=== PATIENT | female | born 1940 | race Caucasian/White ===

== ENCOUNTER → 2017-01-11 | Outpatient (CLI) | payer MEDICARE, BC ==
--- NOTE | 2017-01-11 14:58 | RADRPT ---
PROCEDURE: XR Right hip and pelvis. CLINICAL INDICATION: Right hip pain. Pelvic pain. TECHNIQUE: Two views. Frontal pelvis and lateral right hip. COMPARISON: No prior studies are available for comparison. FINDINGS: There is no fracture or dislocation. The soft tissues are normal. There are degenerative changes of the right hip with joint space narrowing and osteophytes. The left hip is grossly normal. There is no lytic or blastic lesion. The upper pelvis is not completely included on the image. IMPRESSION: 1. Moderate degenerative changes of the right hip. 2. Grossly normal appearance of the left hip and pelvis. RPTAT: QQ .Zander Venegas MD, MD Date Time Electronically viewed and signed by .Zander Venegas MD, MD on 01/11/2017 14:57 .R/
--- NOTE | 2017-01-11 18:02 | HKNOTE ---
DATE OF SERVICE: 01/11/2017 MAIN COMPLAINT: Pain in her right hip. HISTORY OF MAIN COMPLAINT: The patient is a 76-year-old female who complains of pain in her right h ip joint. She has had the pain now for about a year. There has been no history of injury to the hi p. The pain is localized to the right groin and radiates down the anterior thigh to just above the knee. PRESENT COMPLAINTS: The pain is localized as above. Pain varies from mild to moderate. It has nev er been severe. Pain seems to come and go at will. Sleeping in certain positions aggravates the pa in. 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 She is not taking any medications for the pain, "I don't believe in medications." She does not have any back pain. No numbness or tingling in her legs. On a level surface, she can walk "as far as n eeded." She does not use a walking aid. She does not limp. She does not have a shoe lift. She ca n clip her toenails and tie her shoe laces. SPORTING ACTIVITIES: None. PAST ORTHOPEDIC HISTORY PREVIOUS ORTHOPEDIC OPERATIONS: None. PRIOR CORTISONE INTAKE: None. ALCOHOL INTAKE: 1 glass of wine on social occasions. OTHER JOINT PROBLEMS: None. BLOOD TESTS FOR ARTHRITIS: None. PRIOR INJURIES TO HIPS OR KNEES: None. WORK STATUS: Mainly sitting at a desk. PAST MEDICAL HISTORY: Hypertension and asthma. PAST SURGICAL HISTORY: Ovarian cyst removed. ALLERGIES: ASPIRIN. MEDICATIONS: 1. Benicar 40 mg a day for hypertension. 2. Climara once a month on a patch. FAMILY HISTORY: Father at 80 of unstated causes. Mother at 88 of unstated causes. SYSTEMS REVIEW: Varicose veins, hypertension, otherwise entirely negative. HABITS: The patient does not smoke. She drinks an occasional glass of wine. POT WASHER: Dr. Yunior Vee [address], [place] [address]. PHYSICAL EXAMINATION: GENERAL: The patient is an extremely fit-looking and youthful 76-year-old female. She looks at [facility] years younger than her stated age. Her gait is normal. VITAL SIGNS: Height 5 feet 2 inches, weight 118 pounds, blood pressure 115/55, temperature 97.9. Examination of the right hip: A full range of motion with pain in the groin on forced internal rota tion and forced external rotation. Examination of the left hip: A full range of motion without pain. No tenderness anywhere around either hip. RIGHT KNEE: The right knee shows normal alignment. Active and passive extension is 0 degrees. Activ e and passive flexion is 135 degrees. The medial and lateral collateral ligaments and cruciate ligam ents are intact. Rhett test is negative. There is no effusion, tenderness, scarring, crepitus, or cysts. The patella tracks normally. There is no tenderness on the articular surface of the patella o r in the patellar groove. The Q angle is normal. LEFT KNEE: The left knee shows normal alignment. Active and passive extension is 0 degrees. Active and passive flexion is 135 degrees. The medial and lateral collateral ligaments and cruciate ligamen ts are intact. Rhett test is negative. There is no effusion, tenderness, scarring, crepitus, or cy sts. The patella tracks normally. There is no tenderness on the articular surface of the patella or in the patellar groove. The Q angle is normal. IMAGING: Plain x-rays of her pelvis and hips obtained today at the [facility] we re reviewed. These showed severe medial compartment degenerative osteoarthritis of both hips, more severe on the right side. Remarkably, the superior joint space seems to be fairly well maintained. DIAGNOSES: 1. 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 2. Nonsymptomatic degenerative osteoarthritis of the left hip. 3. Hypertension. 4. Asthma. MANAGEMENT: The patient is advised that sooner or later she will need to have a right hip replaceme nt operation. The operation was discussed with her in a fair amount of detail including some of the major possible complications. The patient was given my manual titled "Arthritis of the Hip Joint" which contains information jean-paul rning the various alternatives of treatment. It includes various forms of conservative treatment, in cluding the use of nonsteroidal anti-inflammatory medications and their dangers. Various surgical al ternatives are discussed. The technique of total hip replacement is discussed in detail, including p ossible complications. Included also is a section on the possible complications of blood transfusion , a section on postoperative precautions, and an exercise program to follow at home after total hip replacement. The long-term care of a total hip replacement implant is also covered in detail. The pia chaidez was instructed to read this manual in its entirety since it is, in and of itself, a form of in formed consent. After reading this manual, the patient will make a list of further questions that ma y not have been covered adequately. The patient was further advised that this manual, although exhau stive in nature, is only intended to supplement and complement a one-on-one discussion with me. The patient is advised that she could possibly go another 2 or 3 years before having the surgery. I offered her the option of giving her an anti-inflammatory medication or possibly even a cortisone i njection into the hip, but she declined all of these offers. She is going on a trip to [facility] next week. She will take [id number] anti-inflammatory m edications as needed [she declined a prescription], and she will be seen again as necessary for furt her treatment. FINAL DIAGNOSES: 1. 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 2. Nonsymptomatic degenerative osteoarthritis of the left hip. 3. Hypertension. 4. Asthma. Dictated By: MADISON MAR/SHRADDHA Conf#: [id number] DID#: [id number]
== END | disposition home or self-care (01) ==
LOC: HKI 14:04
DX: M16.0 Bilateral primary osteoarthritis of hip (principal); I10 Essential (primary) hypertension; J45.909 Unspecified asthma, uncomplicated
CPT/HCPCS: 73502; G0463

== ENCOUNTER → 2017-02-07 | Outpatient (CLI) | payer MEDICARE, BC ==
--- NOTE | 2017-02-07 16:48 | PREOPHP ---
DATE OF ADMISSION: 02/07/2017 HISTORY OF PRESENT ILLNESS: The patient is a 76-year-old female who presents today for preoperative examination for scheduled right total hip arthroplasty via anterior to be performed on 02/10/2017. Patient has had history of right hip pain for over a year. Pain is localized to the right groin and at times can travel down the anterior thigh. Pain severity can vary with most severe pain being at a moderate level. No secondary falls or injuries due to pain. No previous surgeries or interventions to the right hip. In regards to the procedure, the patient is not giving any blood for autotransfusion. She understands the risk associated with using hospital blood. She is agreeable to using hospital blood if needed. The patient is having no symptoms during exam in regards to upper respiratory symptoms, urinary symptoms, chest and respiratory symptoms as well as abdominal symptoms. The patient is ready and willing to proceed with surgery scheduled for 2016. The patient presents with her today. MEDICATIONS 1. Benicar 40 mg once a day. 2. Climara 1 mg patch of different alternating strength 4.80 with 1.39 mg. Taking no other medications. ALLERGIES: ASPIRIN. REVIEW OF SYSTEMS: Review of systems were reviewed and patient deny any complaints. DIAGNOSIS: Degenerative joint disease of the right hip. DISCUSSION: Risks regarding surgery were discussed with the patient today, such as bleeding, blood clots and nerve injury, etc. The patient is aware. The patient has signed consents to proceed with surgery. The patient is aware that blood transfusion is a possibility and has signed consents. The patient states that she does have advanced directives for DO NOT RESUSCITATE and will present with documentation on the day of surgery. The patient has been seen by tree fruit and nut farming supervisor, Yuri Alcazar MD who has cleared patient for surgery on 2016 (Documented in [facility]). Patient will present on the day of surgery and all instructions were communicated with the patient today. POSTOPERATIVE MEDICATIONS: Prescriptions provided for patient today. 1. [place] 10/325 mg with instructions to take every 4 to 6 hours as needed for severe pain only #90 tablets. 2. Restoril 30 mg with instructions to take 1 tab at bedtime as needed for insomnia. 3. Gabapentin 100 mg 1 tab p.o. b.i.d. #60 tablets. 4. Celebrex 100 mg 1 tab p.o. b.i.d. #60. Dictated By: [place] FARMER for MADISON ORELLANA MD, KP/SHRADDHA Conf#: [id number] DID#: [id number] MTDD
== END | disposition home or self-care (01) ==
LOC: HKI 13:23
DX: Z01.818 Encounter for other preprocedural examination (principal); M25.551 Pain in right hip

== ENCOUNTER 2017-02-08 07:00 | Inpatient (IN) | payer MEDICARE, BC ==
--- NOTE | 2017-02-06 10:43 | PREOPHP ---
DATE OF ADMISSION: 02/08/2017 The patient to have surgery with Dr. Shay Goodrich on 02/08/2017. REASON FOR CONSULTATION: Consultation requested by Dr. Shay Goodrich for medical evaluation and clearance of a 76-year-old woman about to undergo surgery. Thank you, Dr. Goodrich, for allowing us to participate in the care of this patient. HISTORY OF PRESENT ILLNESS: Aurelia Hess, a 76-year-old woman with problems with her right hip and is currently being admitted for correction of the above problem. In terms of her prior surgical procedures, the only surgery she has had is surgery for an ovarian cyst which was done open. Other than that, has had no other surgeries, no other medical hospitalizations other than for pregnancies, has not broken any bones and has been generally healthy. MEDICATIONS: 1. Benicar 40 mg a day. 2. Climara 1 mg patch of different strengths alternating.4.80 with 1.39 mg., Other than that, she takes no other chronic medications. ALLERGIES: ASPIRIN. SOCIAL HISTORY: The patient is , has 2 children and 3 grandchildren. She does not smoke. Alcohol socially. 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 FAMILY HISTORY: Father in his 80s of the brain injury, mother 88 of old age, did have heart issues as well as hypertension. One sister is in good health, however, does have coronary disease and valvular issues. Family history of heart, cancer and hypertension and thyroid issues. REVIEW OF SYSTEMS HEENT: Denies any significant headaches. CARDIORESPIRATORY: Denies any chest pain or shortness of breath. GASTROINTESTINAL: No melena or hematemesis. GENITOURINARY: No urgency, frequency. GYNECOLOGIC: Postmenopause, up to date with her certified travel counselor. MUSCULOSKELETAL: Positive for right hip pain. NEUROPSYCHIATRIC: Unremarkable. GENERAL HEALTH: As above. PHYSICAL EXAMINATION: VITAL SIGNS: The patient's blood pressure was 118/74, pulse was 72 and regular , respirations were 18, temperature 98, height 5 feet 2 inches, weight 124 pounds. GENERAL: The patient was noted to be a well-developed, well-nourished female, alert and cooperative, in no apparent acute distress, oriented to time, place, and person. HEAD, EARS, EYES, NOSE AND THROAT: Head was atraumatic. Eyes: Pupils were equal, reactive to light and accommodation. Fundi were benign. Tympanic membranes were unremarkable. Nose was negative. Mouth was unremarkable. Fair oral hygiene was present. NECK: Supple without any rigidity. Trachea was midline. Thyroid was within normal limits. Neck veins were flat. Carotid pulses were equal. No bruits were heard. BACK: Unremarkable. CHEST: Symmetrical. BREASTS AND AXILLARY: Did not reveal any obvious masses. LUNGS: Clear to percussion and auscultation. HEART: PMI is fifth intercostal space at the midclavicular line. Regular sinus rhythm was noted. No significant murmurs, rubs, or gallops being elicited. ABDOMEN: Soft, good bowel sounds were noted. No significant organomegaly, masses, or tenderness. Scar from prior surgery. GENITALIA: Normal female external genitalia. PELVIC/RECTAL: Per certified travel counselor. EXTREMITIES: Did not reveal any clubbing, edema or cyanosis. Peripheral pulses were physiologic. SKIN: Moist and warm without any eruptions. No gross lymphadenopathy was noted. NEUROLOGIC: Grossly intact. IMPRESSION: 1. Degenerative joint disease, right hip. 2. Hypertension. 3. Menopausal syndrome, on hormone replacement therapy. 4. Stable health. DISCUSSION: Review of laboratory and other data revealed the following: The patient's chemistry panel revealed normal electrolytes, glucose, BUN was minimally elevated at 24, creatinine and liver function tests were normal. Iron was somewhat low, TSH was elevated, free T4 was low, B12 was low as was her vitamin D level. A CBC, UA, PT, PTT were normal. The patient's EKG revealed minor ST changes, no acute changes and the patient's x-ray revealed a kyphotic deformity and degenerative joint disease, no acute changes being noted. DISCUSSION: Dr. Goodrich, I see no contraindication in this patient undergoing current proposed surgery under desired form of anesthesia.In terms of her thyroid function tests. This will be repeated. She may need thyroid replacement prior to surgery. The rest of the laboratory is quite acceptable. I will be more than happy to follow her with you during her stay at [facility]. Thank you again, Dr. Goodrich, for allowing us to participate in the care of this patient. Dictated By: GUICHO RUFF/SHRADDHA Conf#: [id number] DID#: [id number] MTDD
[~2017-02-08] VITALS: Ht 157.5 cm; Wt 52.0 kg
[2017-02-09 09:15] VITALS: Ht 157.5 cm; Wt 52.0 kg
[2017-02-17] VITALS (28 sets, daily range): BP systolic 73–147; BP diastolic 28–77; PULSE 69–98; RESP 11–19
[2017-02-17] MEDS ORDERED: DEXAMETHASONE 4 MG/ML 1 ML INJ IV ONE (06:30)
[2017-02-17] MEDS ORDERED: ONDANSETRON 4 MG INJ IV ONE (06:30)
[2017-02-17] MEDS ORDERED: TRANEXAMIC ACID IVPB ONE ×3 (06:30→18:30)
[2017-02-17] MEDS ORDERED: CELECOXIB 200 MG CAP PO ONE (06:30)
[2017-02-17] MEDS ORDERED: LACTATED RINGER'S 1,000 ML IV* SCH (06:30)
[2017-02-17] MEDS ORDERED: ACETAMINOPHEN 1000MG/100ML IV 100 ML IVPB ONE (06:30)
[2017-02-17] MEDS ORDERED: oxyCODONE (CR) 10 MG TAB [oxyCONTIN] PO ONE (06:30)
[2017-02-17] MEDS ORDERED: LANSOPRAZOLE 30 MG CAP PO ONE (06:30)
[2017-02-17] MEDS ORDERED: SOD CHLORIDE 0.9% IVPB ONE ×3 (06:30→18:30)
[2017-02-17] MEDS ORDERED: VANCOMYCIN 1 GM (PMX) 250 ML IVPB ONE (06:30)
[2017-02-17] MEDS ORDERED: GLYCOPYRROLATE 0.4 MG INJ ONE (06:38)
[2017-02-17] MEDS ORDERED: NEOSTIGMINE 3 MG/3 ML SYRINGE ONE (06:38)
[2017-02-17] MEDS ORDERED: PROPOFOL 20 ML ONE ×2 (06:38→06:40)
[2017-02-17] MEDS ORDERED: ROCURONIUM 50 MG INJ ONE (06:38)
[2017-02-17] MEDS ORDERED: LIDOCAINE 2% (SDV) 5 ML INJ ONE (06:38)
[2017-02-17] MEDS ORDERED: MIDAZOLAM 1 MG/ML 2 ML INJ ONE (06:39)
[2017-02-17] MEDS ORDERED: DEXAMETHASONE 4 MG/ML 1 ML INJ ONE (06:39)
[2017-02-17] MEDS ORDERED: FENTAnyl 50 MCG/ML VIAL ONE (06:39)
[2017-02-17] MEDS ORDERED: ONDANSETRON 4 MG INJ ONE (06:40)
[2017-02-17] MEDS ORDERED: LIDOCAINE 2%/EPI 30 ML INJ ONE (06:41)
[2017-02-17] MEDS ORDERED: morphine (1 MG/ML) 10ML SYRINGE IV PRN ×3 (07:00)
[2017-02-17] MEDS: HIP PAIN COCKTAIL VANCO INJ SCH ×14 (07:00→09:25)
[2017-02-17] MEDS ORDERED: ONDANSETRON 4 MG INJ IV PRN (07:00)
[2017-02-17] MEDS ORDERED: DIPHENHYDRAMINE 50 MG INJ IV PRN (07:00)
[2017-02-17] MEDS ORDERED: HYDROmorphONE (0.2 MG/ML) 10ML SYG IV PRN ×3 (07:00)
[2017-02-17] MEDS ORDERED: LABETALOL HCL 20MG INJ IV PRN (07:00)
[2017-02-17] MEDS ORDERED: OXYCODONE/ACETAMINOPHEN (5/325) TAB PO PRN ×2 (07:00)
[2017-02-17] MEDS ORDERED: FENTAnyl 50 MCG/ML VIAL IV PRN ×2 (07:00)
[2017-02-17] MEDS ORDERED: SEVOFLURANE 15 MIN ONE (07:00)
[2017-02-17] MEDS ORDERED: MIDAZOLAM 1 MG/ML 2 ML INJ IV PRN (07:00)
[2017-02-17] MEDS ORDERED: ATROPINE 1 MG/10 ML SYRINGE IV PRN (07:00)
[2017-02-17] MEDS ORDERED: hydrALAzine 20 MG INJ IV PRN (07:00)
[2017-02-17] MEDS ORDERED: EPHEDrine SULFATE 50 MG/5 ML SYG IV PRN (07:00)
[2017-02-17] MEDS ORDERED: MEPERIDINE 25 MG INJ IV PRN (07:00)
--- NOTE | 2017-02-17 07:35 | HPN ---
Date/Time of Note Date/Time of Note DATE: 02/17/17 TIME: 07:35 Interval H&P Admission Note Pt. seen H&P reviewed: No system changes [place] RUBY PA-C February 17, 2017 07:35
[2017-02-17] MEDS ORDERED: OLME40TA14 PO (07:37)
[2017-02-17] MEDS ORDERED: LEVO50TA74 PO (07:37)
[2017-02-17] MEDS ORDERED: ESTR1PAT45 TD (07:37)
[2017-02-17] MEDS ORDERED: POLYMYXIN B 500000 UNIT INJ ONE (07:46)
[2017-02-17] MEDS ORDERED: VANCOMYCIN 1 GM INJ ONE (07:46)
[2017-02-17] MEDS ORDERED: ROPIVACAINE 0.2% 100 ML ONE (07:47)
[2017-02-17] MEDS ORDERED: HEPARIN 1000 UNITS/ML 10 ML INJ ONE (07:47)
[2017-02-17] MEDS ORDERED: SOD CHLORIDE 0.9% IRR SCH ×2 (08:00)
[2017-02-17] MEDS ORDERED: TRANEXAMIC ACID IRR SCH ×2 (08:00)
[2017-02-17] MEDS ORDERED: BACITRACIN 50000 UNITS INJ IRR ONE (09:22)
[2017-02-17] MEDS ORDERED: ROPIVACAINE 0.2% 100ML BAG INJ ONE (09:25)
[2017-02-17] MEDS ORDERED: GELATIN SIZE 100 SPONGE ONE (09:51)
[2017-02-17] MEDS ORDERED: FUROSEMIDE 20 MG INJ ONE (10:28)
[2017-02-17] MEDS ORDERED: SENNA/DOCUSATE NA (8.6MG/50MG) TAB PO PRN (12:30)
[2017-02-17] MEDS ORDERED: NALOXONE (0.4 MG/ML) INJ IV PRN (12:30)
[2017-02-17] MEDS ORDERED: NACL 0.9% 3 ML SYG IV SCH (12:30)
[2017-02-17] MEDS ORDERED: BISACODYL 10 MG SUPP PR PRN (12:30)
[2017-02-17] MEDS ORDERED: HYDROmorphONE 0.2 MG/ML PCA IV PRN (12:30)
[2017-02-17] MEDS ORDERED: DIPHENHYDRAMINE 50 MG INJ IM PRN (12:30)
[2017-02-17] MEDS ORDERED: ZOLPIDEM 5 MG TAB PO PRN (12:30)
[2017-02-17] MEDS ORDERED: NA PHOSPHATE/BIPHOS 133 ML ENEMA PR PRN (12:30)
[2017-02-17] MEDS ORDERED: WARFARIN 5 MG TAB PO ONE (12:30)
[2017-02-17] MEDS ORDERED: MAGNESIUM HYDROXIDE 30ML CUP PO PRN (12:30)
[2017-02-17] MEDS ORDERED: DOCUSATE SODIUM 100 MG CAP PO ONE (12:30)
[2017-02-17] MEDS ORDERED: BETHANECHOL 25 MG TAB PO PRN (12:30)
[2017-02-17] MEDS ORDERED: oxyCODONE 5 MG TAB PO PRN ×2 (12:30)
[2017-02-17] MEDS ORDERED: MEPERIDINE 10 MG/ML 30 ML PCA IV PRN (12:30)
--- NOTE | 2017-02-17 12:34 | PDOCDIS ---
Discharge Instructions DIAGNOSIS Discharge Diagnosis: Status post right total hip replacement via anterior route. CONDITION Patient Condition: Stable HOME CARE INSTRUCTIONS: Diet Instructions: Regular ACTIVITY: Activity Restrictions: Slowly Increase Activity Rest between Activity Avoid heavy lifting No Sexual Activity Do not Drive Do not operate Machinery Do not operate Power Tool Avoid Heavy Housework Keep Limb Elevated (While at rest. Ice modalities encouraged.) Weight Bearing (As tolerated with front wheeled walker.) Bathing Restrictions: Shower (Using Tegaderm dressing with pad. Apply prior to shower. After area is dry, remove Tegaderm with pad after shower. Repeat the steps each days until cuong removed.) FOLLOW UP/APPOINTMENTS Appointments 03/02/2017 at 2:15 PM Continue anterior hip precautions. AZ RUBY PA-C February 17, 2017 12:34
[2017-02-17] MEDS: CEFAZOLIN 1 GM/50 ML (PMX) 50 ML IVPB SCH ×2 (13:02→20:42)
[2017-02-17] MEDS: ONDANSETRON 4 MG INJ IV SCH ×3 (13:02→18:40)
[2017-02-17] MEDS: ACETAMINOPHEN 1000MG/100ML IV 100 ML IVPB SCH ×2 (13:05→20:42)
--- NOTE | 2017-02-17 13:14 | RADRPT ---
PROCEDURE: Fluoroscopic guidance with x-ray images during right total hip replacement. CLINICAL INDICATION: Right total hip replacement. TECHNIQUE: Two x-ray images were obtained during right total hip replacement. COMPARISON: None available FINDINGS: 0.7 minutes of fluoroscopy time was utilized during pacemaker insertion. Two x-ray images were obta ined during the procedure in progress for guidance. Cumulative dose total is 6.79 mGy and 0.197 mGym 2. Procedure was performed by Dr. Goodrich. Right total hip has been placed in good position an d alignment. No acute fractures seen. IMPRESSION: 1. Fluoroscopic guidance with x-ray images obtained for right total hip replacement. RPTAT: XX .Hi Gibbons MD, Date Time Electronically viewed and signed by .Hi Gibbons MD, on 02/17/2017 13:14 .T/
--- NOTE | 2017-02-17 13:32 | RADRPT ---
PROCEDURE: XR Right Hip CLINICAL INDICATION: Postop TECHNIQUE: A single portable AP view of the right hip was submitted. COMPARISON: Intraoperative study done earlier on the same date FINDINGS: Osseous structures: A well seated total right hip replacement is again evident. There is a linear toma cency through the lateral right acetabular roof which was also evident on earlier study of 7 which likely represents a separate ossicle. Joint spaces: The prosthetic hip joint is well maintained. Soft tissues: Intra-articular air and subcutaneous air is evident. Superficial cuong been placed laterally and drains are now evident. IMPRESSION: 1. Well seated total right hip replacement with postoperative intra-articular subcutaneous air evid ent. 2. 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 3. Drains and superficial cuong been placed. Physician Roby Date Time Electronically viewed and signed by Physician Roby on 02/17/2017 13:32 /
[2017-02-17] MEDS ORDERED: BACITRACIN 50000 UNITS INJ ONE (15:25)
[2017-02-17] MEDS ORDERED: CEPASTAT LOZENGE MT PRN (17:00)
[2017-02-17] MEDS ORDERED: BUPIVACAINE 0.25%/EPI (SDV) 30 ML INJ INJ ONE (17:00)
[2017-02-17] MEDS: DEXTROSE 5%-LR 1,000 ML IV SCH (17:47)
--- NOTE | 2017-02-17 19:09 | OPR ---
DATE OF OPERATION: 02/17/2017 SURGEON: Shay Goodrich MD SIZER MACHINE: MARLENY Freedman ANESTHESIOLOGIST: Vijay Fermin MD PREOPERATIVE DIAGNOSIS: Severe degenerative osteoarthritis of the right hip. POSTOPERATIVE DIAGNOSIS: Severe degenerative osteoarthritis of the right hip. OPERATION PERFORMED: Right total hip replacement by the anterior route. Computer-assisted surgery using the Vingle digital imaging computer. FINDINGS AT SURGERY: The patient was found to have exceedingly severe degenerative osteoarthritis o f the right hip. The femoral head had no normal-appearing articular cartilage. At least 70% of the femoral head was eburnated bone without any cartilage whatsoever. The patient's bone quality was s atisfactory for a female of her age. JUSTIFICATION FOR SURGERY: The patient is a 76-year-old female patient who is extremely active. 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 She is quite markedly incapacitated in her work as well as in her personal life by the arthritic pain in her right hip. There can be no sc ientific expectation that any further conservative measures would give this patient any relief from her incapacitating pain. DESCRIPTION OF PROCEDURE: The patient was given intravenous antibiotics approximately 1 hour prior to surgery. An epidural anesthetic was initiated in the preanesthesia area. The patient was then m rin to the operating room and transferred to a Mcfarland table. General anesthesia was induced with int ubation and full muscle paralysis. Plain and digital x-rays were obtained of the pelvis and the ope rative hip and stored in the computer. Measurements were made on the operative hip to determine the degree of leg length and offset. The intent was to use the operative hip as the basic template for restoring the geometry of the operative hip (i.e., the opposite hip was not used as the template). On the pelvic x-ray, the correct orientation of the pelvis for surgery was determined. Note that [employer] computer was used throughout for making all leg length and angular measurements. The operative thigh, leg and lower abdomen were prepared and draped in the usual sterile fashion. A n oblique incision was made over the lateral aspect of the right thigh. Incision commenced 3 cm dis francisca and 3 cm posterior to the anterior superior iliac spine. The total length of the incision was a pproximately 100 mm in length. The incision was deepened through the subcutaneous fat to expose the fascia over the tensor muscle. The fascia was opened to expose the muscle. Bleeding points were c auterized throughout by diathermic coagulation. The fascia over the tensor was incised by blunt and digital resection. The interval was found between the tensor muscle and the anterior capsule as we ll as the rectus muscle. Superior and inferior cobra retractors were now placed outside the capsule to expose the anterior surface of the capsule. A third cobra retractor was placed over the brim of the pelvis. The reflected head of rectus was first elevated with a Odell elevator. The anterior capsule was incised along the length of the intratrochanteric line with the hip externa lly rotated. The incision extended around the proximal femur to the lesser trochanter. The incisio n was now extended vertically to the edge of the acetabulum. The capsular incision was extended lópez ng the anteromedial extent of the anterior rim of the acetabulum. A cobra retractor was placed insi de the capsule medially. The lateral aspect of the anterior capsule was incised and a second cobra retractor was placed inside the capsule around the superior femoral neck. Three turns of traction were placed on the operative leg. The femoral head was now freed from the a cetabulum using a skid. The remaining superior and anterior capsule was incised and the femoral nec k was then incised. A corkscrew was inserted into the femoral head from the anterior aspect of the femoral head. Using the corkscrew as a handle and using a skid, the hip was now completely dislocat ed. The hip was reduced. An osteotomy of the femoral neck was made at the location determined by preope rative templating. The femoral head was now removed. By suitable retraction, the acetabulum was exposed. Soft tissues around the folia removed. The ray tabulum was enlarged and deepened to 49 mm. The last acetabular reamers were inserted under fluoros copic control and the correct orientation of the socket and if the reaming were determined by the [employer] and direct x-ray visualization. The acetabular component was now installed with an o rientation of 39 degrees of abduction and 23 degrees of anteversion. Two superior screws were now p laced to further secure the acetabular component. The [employer] was used for making these me asurements. The proximal femur was now exposed by hyperextending and adducting the hip joint. A retractor was p laced posterior to the femoral neck so as to retract the proximal femur laterally. A hook was then placed around the proximal femur deep to the tensor muscle and as proximal as possible. The hook wa s attached to the table scarlet and the femur was elevated as high as we could go without force being a pplied to the femur. The superior and proximal femoral capsules were now incised. The cobra retractor was placed behind the posterior rim of the acetabulum. A Steinmann pin was driven into the pelvis superior to the ray tabulum to retract the soft tissues. A third cobra was placed over the rim of the acetabulum and th e fourth cobra was placed along the medial aspect of the acetabulum. This allowed further mobilizat ion of the proximal femur. A canal finder was used to find the canal. The proximal femur is now br oached starting with the smallest broach and progressively increasing until we felt we could go no f urther. At this point, the size 10 broach was left in place and the hip was reduced. X-rays were t aken and these x-rays showed that we could broach up 1 more size. The hip was reduced with the shor test femoral head and neck assembly and measurements were made to determine what neck lengths and of fset changes were still needed. The hip was dislocated. The next size broach (size 11) was now installed. This broach was found to be completely stable. The hip was reduced using the +1 mm femoral head and neck assembly and the s ize 11 broach. Measurements indicated that the leg lengths had been increased by about 1 mm. The o ffset was increased by 1.5 mm. This was felt to be an appropriate combination. At this point, the hip was put through a range of motion after the foot had been disconnected from the Mcfarland table. The hip was found to have a full stable range of motion to the limits of motion. However, the hip felt slightly loose (Shuck test). The femoral head was therefore exchanged to a +[address] This gave a leg length increase of 2.1 mm, and the offset was lateralized by 5 mm. With this c onstruct in place, the hip was again put through a full range of motion and was found to be stable t o the limits of motion, and the tension on the capsular structures was found to be good (Mcfarland test). As trial components were removed, the permanent plastic acetabular component was installed. This wa s followed by installing the permanent femoral component. The table was now returned to a neutral p osition and the hip was dislocated. The wound was frequently irrigated throughout the procedure wit h normal saline containing antibiotics using pulsatile lavage. The permanent femoral component was installed, it fit perfectly and appeared to be completely stable . The permanent femoral head was installed and the hip was reduced. Superficial and deep Hemovac drains were placed. Soft tissues around the hip were injected with a m ixture of Naropin, Toradol, morphine and clonidine for pain management. The deep tissues were now c losed using interrupted Vicryl. The subcutaneous tissues were closed using a Quill type stitch. Th e skin was closed using cuong. The usual sterile dressings were applied and an abduction pillow was placed between the patient's le gs before transferring her to a renglewood. The patient returned to the recovery room in stable conditi on. There were no problems or complications throughout this operation as far as is known. Although multiple x-rays were taken in the operating room and saved, the permanent x-ray record was obtained in the recovery room to be sure that the hip did not dislocate in transfer. 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 Leg lengths and offset as measured with the Vingle computer showed that the leg lengths had been in creased by 2.1 mm and the offset lateralized by 5 mm. Reinfusion was used. The total blood loss was 800 mL, and 450 mL were recovered and reinfused as pa cked cells. Dictated By: SHAY MAR/SHRADDHA Conf#: [id number] DID#: [id number]
[2017-02-18] VITALS (9 sets, daily range): BP systolic 78–128; BP diastolic 43–74; PULSE 72–95; RESP 18–20
[2017-02-18] MEDS: DEXTROSE 5%-LR 1,000 ML IV SCH (00:54)
[2017-02-18] MEDS: CEFAZOLIN 1 GM/50 ML (PMX) 50 ML IVPB SCH (03:36)
[2017-02-18] MEDS: ACETAMINOPHEN 1000MG/100ML IV 100 ML IVPB SCH ×3 (03:36→21:18)
[2017-02-18 05:09] LABS: ADD SCAN DIFF NO
[2017-02-18 05:15] LABS: BASOPHILS % 0.1 % (0.0-2.0); HEMATOCRIT 27.4 % (37.0-47.0); HEMOGLOBIN 8.6 g/dl (12.0-16.0); LYMPHOCYTES # 1.2 10^3/ul (0.8-2.9); LYMPHOCYTES % 9.7 % (15.0-51.0); MEAN CORPUSCULAR HEMOGLOBIN 29.1 pg (29.0-33.0); MEAN CORPUSCULAR HGB CONC 31.4 g/dl (32.0-37.0); MEAN CORPUSCULAR VOLUME 92.6 fl (82.0-101.0); MEAN PLATELET VOLUME 11.9 fl (7.4-10.4); MONOCYTES % 7.7 % (0.0-11.0); NEUTROPHIL # 10.4 10^3/ul (1.6-7.5); RED BLOOD COUNT 2.96 10^6/ul (4.20-5.40); RED CELL DISTRIBUTION WIDTH 12.6 % (11.5-14.5); WHITE BLOOD COUNT 12.7 10^3/ul (4.8-10.8)
[2017-02-18 05:16] LABS: PLATELET COUNT 114 10^3/UL (140-415)
[2017-02-18] MEDS ORDERED: BUPIVACAINE 0.25%/EPI (SDV) 30 ML INJ INJ PRN (06:00)
[2017-02-18] MEDS ORDERED: KETOROLAC 15 MG INJ INJ PRN (06:00)
[2017-02-18] MEDS: DEXAMETHASONE 4 MG/ML 1 ML INJ IV SCH (06:14)
[2017-02-18] MEDS: ONDANSETRON 4 MG INJ IV SCH (06:15)
[2017-02-18] MEDS: PANTOPRAZOLE (EC) 40 MG TAB PO SCH (06:16)
[2017-02-18] MEDS ORDERED: ENOXAPARIN 30 MG/0.3 ML SYG SC ONE (08:00)
[2017-02-18] MEDS: DOCUSATE SODIUM 100 MG CAP PO SCH ×2 (09:03→21:18)
[2017-02-18] MEDS: FERROUS FUMARATE (SR) TAB PO SCH ×2 (09:03→21:18)
[2017-02-18] MEDS: CELECOXIB 200 MG CAP PO SCH ×2 (09:03→21:18)
[2017-02-18] MEDS ORDERED: MIDODRINE 5 MG TAB PO PRN (13:00)
--- NOTE | 2017-02-18 13:00 | PN ---
DATE: POSTOPERATIVE DAY #1. HISTORY OF PRESENT ILLNESS: The patient is making excellent progress. She does not get up with phy sical therapy today because she had orthostatic hypotension. She is normally hypertensive. VITAL SIGNS: Temperature 98.7. LABORATORY DATA: Hemoglobin 8.6, white cell count 12.7. Dressings were changed. Wound edges look a little bruised, but are otherwise very good in appearanc e. Hemovac drains were removed. Neurovascular to the lower extremities intact, including the hip flexors. The patient will be put on midodrine for the orthostatic hypotension. Dictated By: MADISON MAR/SHRADDHA Conf#: [id number] DID#: [id number]
[2017-02-18] MEDS: oxyCODONE 5 MG TAB PO PRN ×2 (13:54→23:45)
[2017-02-19] MEDS: DEXAMETHASONE 4 MG/ML 1 ML INJ IV SCH (05:33)
[2017-02-19] MEDS: PANTOPRAZOLE (EC) 40 MG TAB PO SCH (05:33)
[2017-02-19] MEDS: ACETAMINOPHEN 1000MG/100ML IV 100 ML IVPB SCH (05:33)
[2017-02-19 05:39] LABS: ADD SCAN DIFF NO
[2017-02-19 05:42] LABS: BASOPHILS % 0.2 % (0.0-2.0); EOSINOPHILS % 0.2 % (0.0-7.0); HEMATOCRIT 23.4 % (37.0-47.0); HEMOGLOBIN 7.7 g/dl (12.0-16.0); LYMPHOCYTES # 2.3 10^3/ul (0.8-2.9); MEAN CORPUSCULAR HEMOGLOBIN 30.3 pg (29.0-33.0); MEAN CORPUSCULAR HGB CONC 32.9 g/dl (32.0-37.0); MEAN CORPUSCULAR VOLUME 92.1 fl (82.0-101.0); MEAN PLATELET VOLUME 12.2 fl (7.4-10.4); MONOCYTE # 1.1 10^3/ul (0.3-0.9); MONOCYTES % 8.7 % (0.0-11.0); NEUTROPHIL # 8.7 10^3/ul (1.6-7.5); NEUTROPHILS % 71.5 % (39.0-77.0); PLATELET COUNT 104 10^3/UL (140-415); RED BLOOD COUNT 2.54 10^6/ul (4.20-5.40); RED CELL DISTRIBUTION WIDTH 12.8 % (11.5-14.5); WHITE BLOOD COUNT 12.2 10^3/ul (4.8-10.8)
[2017-02-19 08:13] VITALS: BP 120/57; RESP 19
[2017-02-19] MEDS: oxyCODONE 5 MG TAB PO PRN (09:31)
[2017-02-19] MEDS: CELECOXIB 200 MG CAP PO SCH ×2 (09:31→20:32)
[2017-02-19] MEDS: FERROUS FUMARATE (SR) TAB PO SCH ×2 (09:31→20:32)
[2017-02-19] MEDS: DOCUSATE SODIUM 100 MG CAP PO SCH ×2 (09:31→20:34)
[2017-02-19 11:32] LABS: ADD SCAN DIFF NO
[2017-02-19 11:33] LABS: BASOPHILS % 0.1 % (0.0-2.0); HEMOGLOBIN 7.9 g/dl (12.0-16.0); LYMPHOCYTES # 1.2 10^3/ul (0.8-2.9); LYMPHOCYTES % 9.1 % (15.0-51.0); MEAN CORPUSCULAR HEMOGLOBIN 29.3 pg (29.0-33.0); MEAN CORPUSCULAR HGB CONC 31.6 g/dl (32.0-37.0); MEAN CORPUSCULAR VOLUME 92.6 fl (82.0-101.0); MEAN PLATELET VOLUME 12.1 fl (7.4-10.4); MONOCYTE # 0.9 10^3/ul (0.3-0.9); MONOCYTES % 7.5 % (0.0-11.0); NEUTROPHIL # 10.4 10^3/ul (1.6-7.5); NEUTROPHILS % 82.7 % (39.0-77.0); PLATELET COUNT 111 10^3/UL (140-415); WHITE BLOOD COUNT 12.6 10^3/ul (4.8-10.8)
--- NOTE | 2017-02-19 13:37 | PN ---
Date/Time of Note Date/Time of Note DATE: 02/19/17 TIME: 13:35 Assessment/Plan VTE Prophylaxis VTE Prophylaxis Intervention: SCD's Lines/Catheters [facility] Saline Lock Urinary Cath still in place: No Assessment/Plan Problems: (1) Essential hypertension Status: Chronic Comment: Her blood pressure is been okay once we let her get stabilized. As an outpatient she will probably need to go back onto her blood pressure medications for now she is stable (2) Aftercare following hip joint replacement surgery Status: Acute Comment: She is progressing along. Please note this extremely vibrant patient is actually extremely anxious to get moving. Physical therapy will be working with her today discharge as per Dr. Goodrich Qualifiers: Laterality: right Qualified Code: Z47.1 - Aftercare following right hip joint replacement surgery (3) Postoperative anemia due to acute blood loss Status: Acute Comment: Her hemoglobin and hematocrit were different than when she was postop. She however is been stable with her H&H. She is on oral iron and given that she had a low B12 level and going to replace that by IM injection of B12 to allow her body to rebuild its stores (4) Elevated TSH Status: Acute Comment: This will be followed up as an outpatient (5) Vitamin B12 deficiency Status: Acute Comment: Replete IM and p.o. Subjective 24 Hr Interval Summary Free Text/Dictation Patient reports she is anxious to get moving around. Constitutional: no complaints (Denies fever chills or sweats) Respiratory: no complaints (Denies shortness of breath) Cardiovascular: no complaints (Denies chest pain or palpitations) Gastrointestinal: no complaints Genitourinary: no complaints Exam/Review of Systems Vital Signs Vitals Vital Signs Date Time Temp Pulse Resp B/P Pulse Ox O2 Delivery O2 Flow Rate FiO2 02/19/17 08:13 98.0 79 19 120/57 98 02/18/17 19:44 Room Air Intake and Output 02/18/17 02/18/17 02/19/17 14:59 22:59 06:59 Intake Total 100 ml 1300 ml 1200 ml Output Total 900 ml Balance 100 ml 1300 ml 300 ml Exam Constitutional: alert, oriented Neck: non-tender, supple Respiratory: clear to auscultation, normal air movement Cardiovascular: nl pulses, regular rate and rhythm Gastrointestinal: nl liver, spleen, non-tender, soft Results Result Diagram: 02/19/17 1100 Results 24 hrs Laboratory Tests Test 02/19/17 04:19 02/19/17 11:00 White Blood Count 12.2 H 12.6 H Red Blood Count 2.54 L 2.70 L Hemoglobin 7.7 L 7.9 L Hematocrit 23.4 L 25.0 L Mean Corpuscular Volume 92.1 92.6 Mean Corpuscular Hemoglobin 30.3 29.3 Mean Corpuscular Hemoglobin Concent 32.9 31.6 L Red Cell Distribution Width 12.8 13.0 Platelet Count 104 L 111 L Mean Platelet Volume 12.2 H 12.1 H Neutrophils % 71.5 82.7 H Lymphocytes % 19.0 9.1 L Monocytes % 8.7 7.5 Eosinophils % 0.2 0.0 Basophils % 0.2 0.1 Nucleated Red Blood Cells % 0.0 0.0 Neutrophils # 8.7 H 10.4 H Lymphocytes # 2.3 1.2 Monocytes # 1.1 H 0.9 Eosinophils # 0.0 0.0 Basophils # 0.0 0.0 Nucleated Red Blood Cells # 0.0 0.0 Medications Medications Current Medications Oxycodone HCl (Roxicodone) 20 mg Q3H PRN PO PAIN LEVEL 8-10; Start 02/17/17 at 12:30 Oxycodone HCl (Roxicodone) 10 mg Q3H PRN PO PAIN LEVEL 4-7; Start 02/17/17 at 12:30 Oxycodone HCl (Roxicodone) 5 mg Q3H PRN PO PAIN LEVEL 1-3 Last administered on 02/19/17 09:31; Admin Dose 5 MG; Start 02/17/17 at 12:30 Zolpidem Tartrate (Ambien) 5 mg HS PRN PO INSOMNIA; Start 02/17/17 at 12:30 Dexamethasone (Decadron) 4 mg DAILY@07 IV Last administered on 02/19/17 05:33 ; Admin Dose 4 MG; Start 02/18/17 at 07:00; Stop 02/21/17 at 06:59 Pantoprazole (Protonix Tab) 40 mg DAILY@06 PO Last administered on 02/19/17 05 :33; Admin Dose 40 MG; Start 02/18/17 at 06:00 Docusate Sodium/ Ferrous Fumarate (Amber-Sequels) 1 tab BID PO Last administered on 02/19/17 09:31; Admin Dose 1 TAB; Start 02/18/17 at 09:00 Docusate Sodium (Colace) 200 mg BID PO Last administered on 02/19/17 09:31; Admin Dose 200 MG; Start 02/18/17 at 09:00; Stop 02/20/17 at 21:01 Simethicone (Mylicon) 80 mg TID PRN PO DISTENSION/GAS/BLOATING; Start 02/17/17 at 12:30 Senna/Docusate Sodium (Senokot-S) 2 tab BID PRN PO CONSTIPATION; Start at 12:30 Magnesium Hydroxide (Milk Of Mag) 30 ml HS PRN PO CONSTIPATION; Start 02/17/17 at 12:30 Bisacodyl (Dulcolax Supp) 10 mg DAILY PRN MO CONSTIPATION; Start 02/17/17 at 12 :30 Sodium Biphosphate/ Sodium Phosphate (Fleet Enema) 133 ml DAILY PRN MO CONSTIPATION; Start 02/17/17 at 12:30 Diphenhydramine HCl (Benadryl) 25 mg Q4H PRN IM ITCHING OR RASH; Start at 12:30 Ketorolac Tromethamine (Toradol) 15 mg DAILY@06 PRN INJ ADMINSTER BY SURGEON ONLY; Start 02/18/17 at 06:00; Stop 02/20/17 at 23:59 Bupivacaine HCl/ Epinephrine Bitart (Marcaine 0.25%/ Epi (Sdv) 30 ml) 20 ml DAILY@06 PRN INJ ADMINSTER BY SURGEON ONLY; Start 02/18/17 at 06:00; Stop 02/20 at 23:59 Naloxone HCl (Narcan) 0.2 mg Q2M PRN IV DECREASED REPIRATORY RATE; Start at 12:30 Celecoxib (Celebrex) 200 mg BID PO Last administered on 02/19/17 09:31; Admin Dose 200 MG; Start 02/18/17 at 09:00 Phenol (Cepastat Lozenge) 1 lozenge Q1H PRN MT SORE THROAT; Start 02/17/17 at 17:00 Midodrine (Proamatine) 2.5 mg TID@, PRN PO SBP LESS THAN 100; Start at 13:00 Copies To: CC: GUICHO RICHARDSON MD, JOSHUA A MD February 19, 2017 13:37
[2017-02-19] MEDS ORDERED: CYANOCOBALAMIN 1000 MCG INJ IM ONE (14:00)
--- NOTE | 2017-02-19 17:44 | PN ---
DATE: 02/19/2017 HISTORY OF PRESENT ILLNESS: The patient is making excellent progress, but very slow with physical t herapy. There has been only 1 physical therapist to see her today being Monday. On the day of surg jared, she does not have any physical therapy because she was too drowsy. She needs more physical the rapy. Her hemoglobin is 7.9 and I discussed with her having a blood transfusion. The pros and cons were d iscussed. She is agreeable to having a transfusion. Dressings were changed and wound is clean and healing well. Dictated By: MADISON MAR/SHRADDHA Conf#: [id number] DID#: [id number]
[2017-02-19 19:04] VITALS: BP 112/54; RESP 18
[2017-02-20 05:54] LABS: ADD SCAN DIFF NO
[2017-02-20 05:57] LABS: BASOPHILS % 0.4 % (0.0-2.0); EOSINOPHILS # 0.1 10^3/ul (0.0-0.5); EOSINOPHILS % 0.8 % (0.0-7.0); HEMATOCRIT 27.2 % (37.0-47.0); HEMOGLOBIN 8.9 g/dl (12.0-16.0); LYMPHOCYTES # 2.4 10^3/ul (0.8-2.9); LYMPHOCYTES % 25.6 % (15.0-51.0); MEAN CORPUSCULAR HEMOGLOBIN 29.5 pg (29.0-33.0); MEAN CORPUSCULAR HGB CONC 32.7 g/dl (32.0-37.0); MEAN CORPUSCULAR VOLUME 90.1 fl (82.0-101.0); MEAN PLATELET VOLUME 12.4 fl (7.4-10.4); MONOCYTES % 10.2 % (0.0-11.0); NEUTROPHIL # 5.9 10^3/ul (1.6-7.5); NEUTROPHILS % 62.6 % (39.0-77.0); PLATELET COUNT 106 10^3/UL (140-415); RED BLOOD COUNT 3.02 10^6/ul (4.20-5.40); RED CELL DISTRIBUTION WIDTH 14.4 % (11.5-14.5); WHITE BLOOD COUNT 9.5 10^3/ul (4.8-10.8)
[2017-02-20] MEDS ORDERED: LEVOTHYROXINE 50 MCG TAB PO SCH (06:00)
[2017-02-20] MEDS: oxyCODONE 5 MG TAB PO PRN ×3 (06:02→14:48)
[2017-02-20] MEDS: DEXAMETHASONE 4 MG/ML 1 ML INJ IV SCH (06:02)
[2017-02-20] MEDS: PANTOPRAZOLE (EC) 40 MG TAB PO SCH (06:02)
[2017-02-20 07:25] VITALS: BP 134/63; RESP 18
--- NOTE | 2017-02-20 08:26 | PN ---
Date/Time of Note Date/Time of Note DATE: 02/20/17 TIME: 08:20 Assessment/Plan VTE Prophylaxis VTE Prophylaxis Intervention: ambulation, SCD's, other (Patient put on warfarin 5 mg on the day of surgery then Lovenox 30 mg) Lines/Catheters IV Catheter Type (from Nrsg): Saline Lock Eprez in Place (from Nrsg): No Assessment/Plan Assessment/Plan -Hemovac Removed Today -Pain Cocktail Given -Pain Meds as needed -Dress change performed today -OOB with PT. please make sure the patient gets minimum of 2 sessions of physical therapy. Patient originally scheduled to be discharged home today but due to worry regarding therapy/functionality to the hip -Ambulation/SCDs for DVT Prophylaxis. Continued monitoring of anti-embolic therapy by Sausage Mixer. -Continue monitoring with Internal Medicine -Patient Stable Subjective 24 Hr Interval Summary 76-year-old female postop day 3 status post right total hip arthroplasty via anterior route. Patient is up and out of bed with physical therapy. Able to ambulate using front wheeled walker. Patient does have pain complaints that she states ranges from moderate to severe usually with rising to a seated position from lying supine or rising to a standing position from a seated position. Denies any falls or injury. Denies any other complaints outside of pain to the hip usually with shifting of positions. Exam/Review of Systems Vital Signs Vitals Vital Signs Date Time Temp Pulse Resp B/P Pulse Ox O2 Delivery O2 Flow Rate FiO2 02/20/17 07:25 98.5 85 18 134/63 97 02/18/17 19:44 Room Air Intake and Output 02/19/17 02/19/17 02/20/17 15:00 23:00 07:00 Intake Total 700 ml 830 ml Output Total 700 ml Balance 0 ml 830 ml Exam Free Text/Dictation -Hemovac: Removed -Pain Cocktail Drains: Intact -Incision: Clean, Dry and Intact without any redness or drainage. Mild ecchymosis to the buttock region. -Thigh soft -4+/5 Quadriceps, Tibialis Anterior, EHL Gastrocnemius/Soleus and Peroneals -Normal Sensation -Palpable DP/PT, Capillary Refill <2 secs -No Distal Edema -Negative Mook Sign/No calf pain -Toes Freely Movable Constitutional: alert, oriented, well developed Results Result Diagram: 02/20/17 0450 [place] RUBY PA-C February 20, 2017 08:26
--- NOTE | 2017-02-20 08:57 | PN ---
DATE: 02/20/2017 POSTOPERATIVE INTERNAL MEDICINE PROGRESS NOTE TIME SEEN: Approximately 7:40 a.m. SUBJECTIVE: Patient is alert, awake. Received a blood transfusion yesterday and is complaining about not having a therapist to work with her yesterday. Otherwise though pain at the surgical site. No other complaints. PHYSICAL EXAMINATION VITAL SIGNS: Revealed the following: Temperature 98.5, pulse 85, respirations 18, blood pressure 1 34/63, O2 sat 97% on room air. HEENT: Unremarkable. LUNGS: Clear. HEART: Reveals a regular rhythm. ADOMEN: Exam unremarkable. Wound looks clean. IMPRESSION: 1. Status post total hip replacement on the right. 2. Degenerative joint disease. 3. Anemia. 4. B12 deficiency. 5. Hypothyroidism. DISCUSSION: Review of laboratory and other data reveals the following: The patient's hemoglobin po st-transfusion was 8.9, white count is normal. The patient otherwise vital signs and other paramete rs appear to be stable. PLAN: To continue her current medications including her thyroid medication and B12 and hopefully the patient will be getting intensive therapy today so she can be ready for discharge in the morning. Thank you again, Dr. Goodrich, for allowing us to participate in the care of this patient. Dictated By: GUICHO RUFF/SHRADDHA Conf#: [id number] DID#: [id number]
[2017-02-20] MEDS: CYANOCOBALAMIN 500 MCG TAB PO SCH (09:44)
[2017-02-20] MEDS: CELECOXIB 200 MG CAP PO SCH ×2 (09:44→21:26)
[2017-02-20] MEDS: DOCUSATE SODIUM 100 MG CAP PO SCH ×2 (09:44→21:26)
[2017-02-20] MEDS: FERROUS FUMARATE (SR) TAB PO SCH ×2 (09:44→21:26)
[2017-02-20 16:30] VITALS: BP 138/70; PULSE 80; RESP 16
[2017-02-20 20:02] VITALS: BP 139/66; RESP 17
[2017-02-21] MEDS: oxyCODONE 5 MG TAB PO PRN ×2 (03:27→09:11)
[2017-02-21 05:47] LABS: ADD SCAN DIFF NO
[2017-02-21 05:55] LABS: BASOPHILS % 0.4 % (0.0-2.0); EOSINOPHILS # 0.4 10^3/ul (0.0-0.5); EOSINOPHILS % 4.6 % (0.0-7.0); HEMATOCRIT 27.5 % (37.0-47.0); HEMOGLOBIN 8.8 g/dl (12.0-16.0); LYMPHOCYTES # 2.8 10^3/ul (0.8-2.9); LYMPHOCYTES % 31.1 % (15.0-51.0); MEAN CORPUSCULAR HEMOGLOBIN 28.9 pg (29.0-33.0); MEAN CORPUSCULAR VOLUME 90.2 fl (82.0-101.0); MEAN PLATELET VOLUME 12.2 fl (7.4-10.4); MONOCYTE # 0.8 10^3/ul (0.3-0.9); MONOCYTES % 8.4 % (0.0-11.0); NEUTROPHIL # 4.9 10^3/ul (1.6-7.5); NEUTROPHILS % 54.8 % (39.0-77.0); PLATELET COUNT 121 10^3/UL (140-415); RED BLOOD COUNT 3.05 10^6/ul (4.20-5.40); RED CELL DISTRIBUTION WIDTH 14.2 % (11.5-14.5)
[2017-02-21] MEDS ORDERED: LEVOTHYROXINE 50 MCG TAB PO SCH ×2 (06:00)
[2017-02-21] MEDS: PANTOPRAZOLE (EC) 40 MG TAB PO SCH (06:09)
[2017-02-21] MEDS: LEVOTHYROXINE 50 MCG TAB PO SCH ×2 (06:09→08:33)
[2017-02-21 06:18] LABS: ALBUMIN 2.8 g/dl (3.3-4.9); ALBUMIN/GLOBULIN RATIO 1.03; BILIRUBIN,INDIRECT 0.7 mg/dl (0-1.1); BILIRUBIN,TOTAL 0.7 mg/dl (0.2-1.3); CALCIUM 8.3 mg/dl (8.4-10.2); CREATININE 0.91 mg/dl (0.44-1.00); POTASSIUM 4.4 mmol/L (3.5-5.1); TOTAL PROTEIN 5.5 g/dl (6.1-8.1)
[2017-02-21 06:44] LABS: THYROID STIMULATING HORMONE 3.51 MIU/L (0.465-4.680)
--- NOTE | 2017-02-21 07:34 | PN ---
Date/Time of Note Date/Time of Note DATE: 02/21/17 TIME: 07:31 Assessment/Plan VTE Prophylaxis VTE Prophylaxis Intervention: ambulation, SCD's Lines/Catheters IV Catheter Type (from Nrsg): Saline Lock Perez in Place (from Nrsg): No Assessment/Plan Assessment/Plan -Pain Cocktail drains removed. Dermabond applied. -Pain Meds as needed -Dress change performed today -Company Manager will take over and monitor anticoagulation therapy. -Continue monitoring as outpatient on discharge -Follow-up at scheduled postop outpatient appointment or sooner if there is any issue. -Tegaderm dressings given with specific instructions to use as outpatient to keep wound dry until cuong are moved around 10 days. -Hip precautions discussed -Patient Stable -Discharge to Home with home health. Subjective 24 Hr Interval Summary 76-year-old female postop day 4 status post right total hip arthroplasty via anterior route. Patient states that physical therapy continues to improve functionality. Patient is able to weight-bear as well as climb and descend stairs. Patient was experiencing moderate to severe pain with transition from lying supine to sitting as well as standing from a sitting position. She states that pain has significantly improved. Denies any falls. Denies any chest pain/tightness. No calf pain. Patient is ready to go home today and would like to be discharged. Pain Control: well controlled Exam/Review of Systems Vital Signs Vitals Vital Signs Date Time Temp Pulse Resp B/P Pulse Ox O2 Delivery O2 Flow Rate FiO2 02/20/17 20:02 97.7 90 17 139/66 97 02/20/17 16:30 Room Air Intake and Output 02/20/17 02/20/17 02/21/17 15:00 23:00 07:00 Intake Total 840 ml Output Total 1100 ml Balance -260 ml Exam Free Text/Dictation -Hemovac: Removed -Pain Cocktail Drains: Intact -Incision: Clean, Dry and Intact without any redness or drainage. Ecchymosis to the buttock region that is improved since yesterday. -Thigh soft -5/5 Quadriceps, Tibialis Anterior, EHL Gastrocnemius/Soleus and Peroneals -Normal Sensation -Palpable DP/PT, Capillary Refill <2 secs -No Distal Edema -Negative Mook Sign/No calf pain -Toes Freely Movable Constitutional: alert, oriented, well developed Results Result Diagram: 02/21/17 0440 02/21/17 0440 [place] RUBY PA-C February 21, 2017 07:34
--- NOTE | 2017-02-21 07:37 | DS ---
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 Patient Condition: Stable Hospital Course On the day of admission, the patient underwent right total hip arthroplasty via anterior route Intraoperative complications: None Postoperative complications: None The patient was given prophylactic antibiotics and anticoagulants. On the day of surgery and first postoperative day patient was started on gait training and was taught usual restrictions following anterior hip replacement Suction drain removed on the first postoperative day and the dressings were changed. The wound was found to be clean and healing well. There was no sign of infection. Pain cocktail given. On the second postoperative day, patient continued with inpatient PT. Dressings were changed. Wound was found to be clean and healing well. No signs of infection. Pain cocktail given. On the third postoperative day patient continued to do well. Improved functionality with physical therapy. Patient did have difficulty in regards to pain when it came to transitioning of position from a supine to sitting as well as from sitting to standing. This improved throughout the day and states that pain complaints were reduced. On the day of discharge, the wound was clean and healing well; there was no sign of infection. The dressings were changed. Discharge Temperature: 98.2 Discharge White Blood Cell Count: 9 Discharge Hemoglobin: 8.8 The patient was discharged home with home health. Arrangements were made for visiting nurses and home health/physical therapy. Tegaderm with pad also provided for patient. Instructions given on how to use to keep wound dry while showering. Patient may discontinue use of Tegaderm with pad after cuong have been removed around 10 days postoperatively. The patient will be seen in office at scheduled postoperative evaluation date given on their preoperative exam. Should patient complain of any problems prior to scheduled postoperative evaluation date, they may call into outpatient clinic to determine if they need to be scheduled at sooner appointment to be seen immediately if needed. Discharge medications: As per medication reconciliation form Diet: Same as preadmission diet. This is Az Ratliff PA-C dictating discharge summary for Dr. Shay Goodrich. Home Meds Reported Medications Levothyroxine Sodium* (Levothyroxine Sodium*) 50 Mcg Tablet, 50 MCG PO BEFORE BREAKFAST, #30 TAB 02/17/17 Estradiol/Levonorgestrel (Climara Pro Patch) 1 Each Patch.tdwk, 1 EACH TD 02/17/17 Olmesartan Medoxomil (Benicar) 40 Mg Tablet, 40 MG PO DAILY, #30 TAB 02/17/17 Follow-up Plan March 02, 2017 at 2:15 PM Primary Care Provider Yunior Vee Pending Labs Laboratory Tests Test 02/21/17 04:40 White Blood Count 9.010^3/ul (4.8-10.8) Red Blood Count 3.0510^6/ul (4.20-5.40) Hemoglobin 8.8g/dl (12.0-16.0) Hematocrit 27.5% (37.0-47.0) Mean Corpuscular Volume 90.2fl (82.0-101.0) Mean Corpuscular Hemoglobin 28.9pg (29.0-33.0) Mean Corpuscular Hemoglobin Concent 32.0g/dl (32.0-37.0) Red Cell Distribution Width 14.2% (11.5-14.5) Platelet Count 63704^3/UL (140-415) Mean Platelet Volume 12.2fl (7.4-10.4) Neutrophils % 54.8% (39.0-77.0) Lymphocytes % 31.1% (15.0-51.0) Monocytes % 8.4% (0.0-11.0) Eosinophils % 4.6% (0.0-7.0) Basophils % 0.4% (0.0-2.0) Nucleated Red Blood Cells % 0.0/100WBC (0.0-0.0) Neutrophils # 4.910^3/ul (1.6-7.5) Lymphocytes # 2.810^3/ul (0.8-2.9) Monocytes # 0.810^3/ul (0.3-0.9) Eosinophils # 0.410^3/ul (0.0-0.5) Basophils # 0.010^3/ul (0.0-0.1) Nucleated Red Blood Cells # 0.010^3/ul (0.0-0.0) Sodium Level 134mmol/L (135-144) Potassium Level 4.4mmol/L (3.5-5.1) Chloride Level 106mmol/L (97-110) Carbon Dioxide Level 27mmol/L (21-31) Anion Gap 5 (8-16) Blood Urea Nitrogen 22mg/dl (7-20) Creatinine 0.91mg/dl (0.44-1.00) Glucose Level 92mg/dl (70-220) Calcium Level 8.3mg/dl (8.4-10.2) Total Bilirubin 0.7mg/dl (0.2-1.3) Direct Bilirubin 0.00mg/dl (0.00-0.20) Indirect Bilirubin 0.7mg/dl (0-1.1) Aspartate Amino Transf (AST/SGOT) 117IU/L (15-46) Alanine Aminotransferase (ALT/SGPT) 55IU/L (13-69) Alkaline Phosphatase 42IU/L (42-121) Total Protein 5.5g/dl (6.1-8.1) Albumin 2.8g/dl (3.3-4.9) Globulin 2.70g/dl (1.3-3.2) Albumin/Globulin Ratio 1.03 Thyroid Stimulating Hormone (TSH) 3.510MIU/L (0.465-4.680) Free Thyroxine 0.89ng/dl (0.78-2.44) AZ RUBY PA-C February 21, 2017 07:37
[2017-02-21] MEDS: FERROUS FUMARATE (SR) TAB PO SCH (08:33)
[2017-02-21] MEDS: CELECOXIB 200 MG CAP PO SCH (08:33)
[2017-02-21] MEDS: CYANOCOBALAMIN 500 MCG TAB PO SCH (08:35)
[2017-02-21 08:36] VITALS: BP 137/62; RESP 18
--- NOTE | 2017-02-21 08:45 | PN ---
DATE: 02/21/2017 The patient seen approximately 7:40 a.m. SUBJECTIVE: The patient is alert and feeling much better, getting ready to be discharged. Feels go od. PHYSICAL EXAMINATION VITAL SIGNS: Revealed the following: The patient is afebrile. Last set of vitals reveals a blood pressure of 139/66, pulse of 90, respirations 17, O2 saturation 97% on room air. HEENT: Unremarkable. LUNGS: Clear. HEART: Reveals a regular rhythm. Rest of the exam was unremarkable. IMPRESSION: 1. 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 2. Hypertension. 3. Hypothyroidism. 4. Menopausal syndrome on hormone replacement therapy. 5. Anemia postoperatively. DISCUSSION: Review of laboratory and other data reveals the following: Hemoglobin is 8.8 today wit h hematocrit 27.5, white count is normal. Chemistry panel reveals normal electrolytes, borderline s odium, however. Normal liver function tests, however, low total protein and albumin as is noted in hospital setting. The patient's TSH has come down to 3.50. The patient overall is doing much isha r. Instructions given on thyroid usage, B12 sublingually daily as well as iron supplementation. The pa kaylynn will follow up with her own physician in terms of the thyroid as well as the anemia and other appropriate studies. The patient at this point is medically stable in terms of discharge to follow up with Dr. Orellana as well as her primary care physician. Thank you again, Dr. Orellana, for allowing us to participate in care of this patient. Dictated By: GUICHO RICHARDSON MD SS/NTS Conf#: [id number] DID#: [id number] CC: MADISON ORELLANA MD;*EndCC*
== END 2017-02-21 16:10 | disposition home health service (06) | DRG 470 ==
LOC: REC 02-17 05:57 → MS1 02-17 13:41
PROC: 0SR904A Replacement of Right Hip Joint with Ceramic on Polyethylene Synthetic Substitute, Uncemented, Open Approach (ICD-10-PCS; principal; 2017-02-17 08:00)
PROC: 30233N1 Transfusion of Nonautologous Red Blood Cells into Peripheral Vein, Percutaneous Approach (ICD-10-PCS; 2017-02-19)
DX: M16.11 Unilateral primary osteoarthritis, right hip (principal); E53.8 Deficiency of other specified B group vitamins; I10 Essential (primary) hypertension; D62 Acute posthemorrhagic anemia; E03.9 Hypothyroidism, unspecified; I95.1 Orthostatic hypotension; Z78.0 Asymptomatic menopausal state
CPT/HCPCS: 36430; 73500; 73530; 80053; 84439; 84443; 85025; 86850; 86900; 86901; 86920; 87081; 87086; 88305; 97110; 97116; 97162; 97166; 97530; J1940; C1713; C1776; J0131; J0171; J0690; J0735; J1100; J1644; J1650; J1885; J2250; J2274; J2405; J2710; J2795; J3010; J3370; J3420; J7120; J7121; P9016

== ENCOUNTER → 2017-03-07 | Outpatient (CLI) | payer MEDICARE, BC ==
[~2017-03-07] MED LIST: ESTR1PAT45 TD; LEVO50TA74 PO; OLME40TA14 PO
--- NOTE | 2017-03-07 16:03 | PN ---
Date/Time of Note Date/Time of Note DATE: 03/07/17 TIME: 15:57 Outpatient Progress Note Chief Complaint 2 week postoperative follow-up HPI 76-year-old female presents today for postoperative follow-up status post right total hip arthroplasty via anterior route performed on 02/17/2017. Patient denies any right hip pain. She has had pain to the right buttock region. Patient is up and walking. She states that in her home, she is walking independently but when she goes to work she is walking with a cane. Patient has returned to work and is working an average of 6-7 hours a day primarily sitting. She denies any increased stress to the hip and work has been tolerable with no discomfort. At times, she has insomnia in which sleeping medication can help. She takes pain medication in regards to [place] 10/325 mg selectively as she does not like to take medications. She denies any chest pain /tightness or calf pain. Patient did notice and was diagnosed with shingles rash to the right low back on 03/02/2017. Patient was seen by her PCP Dr. Vee and placed on a Medrol Dosepak as well as an antiviral but she does not recall the specific name of antiviral medication for her shingles rash. She states that rash has improved and is continuing to dissipate. Denies any fever, chills or malaise. Review of Systems Const: No Fever, no chills, no Fatigue, normal appetite, no diaphoresis. Resp: No SOB, no wheezing, no chest pain. CV: No chest pain, no palpitaions, no RICHARDS. Physical Exam Blood pressure is 129/64, temperature is 98.1, pulse is 91, respiratory rate is 13, height is 5 foot 2 inches, weight is 118 pounds. General Appearance: well-developed, well-nourished, in no acute distress. Right hip: Surgical wound is clean dry and intact. Kristi are intact. No tenderness to palpation today. Patient is able to sit comfortably at 90. In regards to ambulation she is walking with single-point cane in office today. Slight limp status post surgery. Denies any pain with ambulation. Negative Homans sign. Allergies Coded Allergies: aspirin (Unverified Allergy, Unknown, 02/07/17) Assessment/Plan -Kristi removed today. Steri-Strips applied. -Wound healing well. No signs of infection. -Continue ASA 325 mg twice daily for DVT prophylaxis until 6 weeks status post surgery. -Continue hip precautions until 6 weeks status post surgery -No signs of DVT. -Patient progressing well. -Follow-up at 6 week postop appointment. X-rays will be performed at 6 weeks postoperative appointment. -Patient made aware that they may follow-up sooner, should they experience any issues or complications as we will be glad to see them. Medications Home Meds Reported Medications Levothyroxine Sodium* (Levothyroxine Sodium*) 50 Mcg Tablet, 50 MCG PO BEFORE BREAKFAST, #30 TAB 02/17/17 Estradiol/Levonorgestrel (Climara Pro Patch) 1 Each Patch.tdwk, 1 EACH TD 02/17/17 Olmesartan Medoxomil (Benicar) 40 Mg Tablet, 40 MG PO DAILY, #30 TAB 02/17/17 AZ RUBY PA-C Mar 07, 2017 16:03
== END | disposition home or self-care (01) ==
LOC: HKI 14:28
DX: Z09 Encounter for follow-up examination after completed treatment for conditions other than malignant neoplasm (principal); Z96.641 Presence of right artificial hip joint

== ENCOUNTER → 2017-03-30 | Outpatient (CLI) | payer MEDICARE, BC ==
--- NOTE | 2017-03-30 15:08 | RADRPT ---
PROCEDURE: XR Right hip and pelvis. CLINICAL INDICATION: Right hip pain. Pelvic pain. Postop. TECHNIQUE: Two views. Frontal pelvis and lateral right hip. COMPARISON: 02/17/2017. FINDINGS: There is no fracture or dislocation. The soft tissues are normal. There is a right hip total arthroplasty which appears satisfactory. The left hip is grossly normal. There is no lytic or blastic lesion. The upper pelvis is not completely included on the image. IMPRESSION: 1. Satisfactory postoperative appearance of the right hip. 2. Grossly normal appearance of the left hip. RPTAT: QQ .Zander Venegas MD, MD Date Time Electronically viewed and signed by .Zander Venegas MD, on 03/30/2017 15:07 .R/
--- NOTE | 2017-03-30 15:21 | PN ---
Date/Time of Note Date/Time of Note DATE: 03/30/17 TIME: 15:13 Outpatient Progress Note Chief Complaint 6 weeks status post right total hip replacement HPI 77-year-old female presents today for 6 week postoperative appointment status post right total hip arthroplasty via anterior route on 02/17/2017. Patient denies any pain to the right hip. Wound continues to heal well. Patient is walking independently. At this time, patient feels that the right leg is slightly longer than the left. She also states that she has not been performing much therapy in regards to walking due to fear of falling on the right hip. She has minimal confidence in the right hip at this time. Denies any injuries. She does report increased back pain, only at night while lying on her back while keeping up with her anterior hip precautions. She does use pillows for sleeping at an incline. Review of Systems Const: No Fever, no chills, no Fatigue, normal appetite, no diaphoresis. Resp: No SOB, no wheezing, no chest pain. CV: No chest pain, no palpitaions, no RICHARDS. Physical Exam Blood pressure is 129/62, temperature is 97.5, pulse is 80, respiratory rate is 12, height is 5 foot 2 inches, weight is 118 pounds General Appearance: well-developed, well-nourished, in no acute distress. Right hip: Surgical wound is clean dry and intact and continues to heal well. Patient is walking independently with a slight limp. Patient is able to stand on the left lower extremity and raise the hip up to 80. No pain with gait or range of motion to the right hip. External rotation is 20 with internal rotation at 30. While lying supine, able to flex up to 90. Negative Homans sign. Normal sensory examination to light touch. Imaging X-ray of the right hip performed on 03/30/2017 showing all components appearing well aligned, attached and integrated to the bone. No signs of any lucency between metal and bone. Allergies Coded Allergies: aspirin (Unverified Allergy, Unknown, 02/07/17) Assessment/Plan * Lengthy discussion had with Dr. Goodrich, myself and patient today. There was concern that was voiced to patient as she feels very little confidence in the right hip. 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 It was explained that we understand she has multiple responsibilities and takes care of multiple things and people, but limiting her activity of the hip status post surgery to prevent any injury could be potentially damaging in the long-term as the muscles are not being truly worked out and may become stiff and make it difficult for her to move. Patient states that she agrees with that concern but has a great fear of injuring herself after surgery because she feels that there will be nobody else to take care of her responsibilities. * Patient was taken off of hip precautions after 6 weeks with no issues. Patient may initiate driving. Lengthy discussion had with patient today to call patient's concerns regarding hip functionality. Patient was advised to start normal activity gradually and increase the activity level very slowly so that she is put at ease and comfortable. Patient was advised to work at her own pace with keeping in mind to continue gradually increasing activity as tolerated. * In regards to her back pain while sleeping, lengthy discussion was had with patient and Dr. Goodrich. Dr. Goodrich recommends patient undergo MRI to the lumbar spine as she reports pain local to the low back with no radiating symptoms. No pain to the groin. Pain occurs at night while lying on the back and points directly to the lumbar spine where her pain is significant. Dr. Goodrich is also advised patient to start Celebrex again as she stopped taking several weeks ago. * Dr. Goodrich is also recommended Flexeril 5 mg to take at night prior to sleep as this may help with potential spasm to the low back. Patient respectfully declines a prescription after evaluation as she states that since she has been taken off her precautions and she has been given the okay by Dr. Goodrich that she may go back to lying on her side she would like to trial going back to normal activity prior to taking additional medication as she wishes to avoid medications if possible. We will respect patient's request. Patient will follow-up in the next week after she obtains MRIs of the lumbar spine and that we we can reassess and if she needs a muscle relaxer, it will be given at that time. Patient is in agreement with plan. * Physical therapy prescription to the right hip given today. Patient may use treadmill with a light walk and gradually increasing speed as tolerated. Stationary bicycle also recommended as an alternative method to get those muscles moving and flexing status post surgery. Start with no resistance and gradually increase resistance as tolerated. * Patient may follow-up sooner should there be any concern and she is in agreement. * Antibiotic card given today. * 1/8 inch shoe lift to the left lower extremity was placed today and patient felt even. Future consideration may be shoe lift to the left side if she continues with feeling of uneven balance although we will not jump to this conclusion as she has not truly been working out the hip in regards to walking and performing daily activity. Antibiotic card provided for patient. Patient made aware that dental prophylaxis will be necessary prior to any dental procedure for the remainder of their lifetime. Patient is aware that they must contact their dentist prior to any procedure to inform them of previous joint replacement with prosthesis implant so appropriate antibiotic may be prescribed to lower risk of joint infection status post surgery. Card will also serve as confirmation should patient be traveling and have to go through security such as at an airport. Patient was seen and evaluated with Dr. Goodrich today. Dr. Goodrich is in agreement with plan. Medications Home Meds Reported Medications Levothyroxine Sodium* (Levothyroxine Sodium*) 50 Mcg Tablet, 50 MCG PO BEFORE BREAKFAST, #30 TAB 02/17/17 Estradiol/Levonorgestrel (Climara Pro Patch) 1 Each Patch.tdwk, 1 EACH TD 02/17/17 Olmesartan Medoxomil (Benicar) 40 Mg Tablet, 40 MG PO DAILY, #30 TAB 02/17/17 AZ RUBY PA-C Mar 30, 2017 15:21
== END | disposition home or self-care (01) ==
LOC: HKI 14:03
DX: Z47.1 Aftercare following joint replacement surgery (principal); Z96.641 Presence of right artificial hip joint; M25.551 Pain in right hip; M54.5 Low back pain; R10.2 Pelvic and perineal pain
CPT/HCPCS: 73502

== ENCOUNTER → 2017-05-04 | Outpatient (CLI) | payer MEDICARE, BC ==
--- NOTE | 2017-05-05 03:46 | HKNOTE ---
DATE OF SERVICE: 12/07/2016 HISTORY OF PRESENT ILLNESS: The patient had a right hip replacement on 02/17/2017. She is very pleased with the results of the surgery. She had no pain, but she complains that the right leg is longer than the left. She feels that it is about one-half inch too long. Reviewing my operative report indicates that the leg length was increased by 2.1 mm at surgery, probably to stabilize the hip, since females of her age generally have very lax ligaments and are prone to dislocation. Measurements using wooden blocks to measure, she feels most comfortable with a three-eighth inch lift. MANAGEMENT: She was advised this is not an uncommon or unusual event. It is very difficult to get the leg length totally accurate to begin with and most surgeons simply rely on surgical landmarks, which are highly inaccurate. Patients frequently have a leg that is a quarter inch too long or too short and very often this is merely a perception that goes away with time. In reviewing her x-ray, there is probably 1 or 2 mm of lengthening of the right leg. MANAGEMENT: She was given a prescription for a three-eighth inch shoe lift. She was advised that in time the legs will feel of equal length again without the shoe lifts. She will be seen again in 3 months' time for re-evaluation. Dictated By: Shay Goodrich MD /garima/jet /Document#: [id number]
== END | disposition home or self-care (01) ==
LOC: HKI 14:58
DX: Z47.1 Aftercare following joint replacement surgery (principal); Z96.641 Presence of right artificial hip joint